=== PATIENT | female | born 1980 | race Caucasian/White ===

== ENCOUNTER 2024-02-01 16:05 | Inpatient (IN) ==
[2024-02-01] MEDS: Albuterol/Ipratropium NEB.SOL (2.5/0.5 MG) 3 ML NEB.SOLN INH ONE (17:06)
[2024-02-01 17:30] LABS: ALT 11 U/L (7-52); AST 12 U/L (13-39); Albumin 3.5 g/dL (3.2-5.2); Alkaline Phosphatase 76 U/L (35-149); Anion Gap 9 mmol/L (2-16); Blood Urea Nitrogen 20 mg/dL (6-24); C Reactive Protein 25.13 mg/L (<8.01); CO2 Carbon Dioxide 27 mmol/L (22-32); Calcium 9.2 mg/dL (8.6-10.3); Chloride 103 mmol/L (101-111); Creatinine, Serum 0.75 mg/dL (0.51-0.95); Globulin 3.4 g/dL (2-4); Glucose 115 mg/dL (70-100); Potassium 4.1 mmol/L (3.5-5.0); Sodium 139 mmol/L (135-145); Total Bilirubin 0.2 mg/dL (0.2-1.0); Total Protein 6.9 g/dL (6.4-8.9); eGFR CKD-EPI 100.6 (>60)
[2024-02-01 17:32] LABS: Hematocrit 37.5 % (35-45); Hemoglobin 12.5 g/dL (11.5-14.3); Mean Corpuscular Hemoglobin 32.7 pg (27-33); Mean Corpuscular Hgb Conc 33.3 g/dL (31-36); Mean Corpuscular Volume 98.2 fL (80-97); Red Blood Count 3.82 10^6/uL (3.63-4.92); White Blood Count 7.7 10^3/uL (3.8-11.8)
[2024-02-01 18:02] LABS: ABS Eosinophils 0.4 10^3/uL (0.0-0.5); ABS Lymphocytes 3.3 10^3/uL (1.0-4.8); ABS Monocytes 0.7 10^3/uL (0.0-0.9); ABS Nucleated RBC 0.01 10^3/ul; Eosinophil % 4.9 %; Lymphocyte % 39.7 %; Nucleated Red Blood Cells % 0.1 %/100WBC (0.0-0.8)
[2024-02-01 18:03] LABS: Mean Platelet Volume 9.1 fL (7.5-11.2); Platelet Count 248 10^3/uL (150-450)
[2024-02-01] MEDS: Enoxaparin 40 MG/0.4 ML SYR SUBCUT SCH (19:56)
[2024-02-01] MEDS: Furosemide 40 mg/4 ml IV VIAL IV ONE (19:57)
[2024-02-01 20:13] LABS: HCG Pregnancy < 0.60 mIU/mL
[2024-02-02 06:19] LABS: ABS Eosinophils 0.3 10^3/uL (0.0-0.5); ABS Lymphocytes 1.7 10^3/uL (1.0-4.8); ABS Monocytes 0.5 10^3/uL (0.0-0.9); ABS Neutrophils 4.1 10^3/uL (1.5-7.6); Eosinophil % 4.3 %; Hematocrit 38.5 % (35-45); Hemoglobin 12.7 g/dL (11.5-14.3); Lymphocyte % 25.2 %; Mean Corpuscular Hemoglobin 32.6 pg (27-33); Mean Corpuscular Hgb Conc 33.1 g/dL (31-36); Mean Corpuscular Volume 98.7 fL (80-97); Mean Platelet Volume 9.2 fL (7.5-11.2); Platelet Count 235 10^3/uL (150-450); White Blood Count 6.7 10^3/uL (3.8-11.8)
[2024-02-02 06:40] LABS: Calcium 9.3 mg/dL (8.6-10.3); Creatinine, Serum 0.63 mg/dL (0.51-0.95); HDL Cholesterol 46.5 mg/dL; Phosphorus 4.1 mg/dL (2.5-5.0); Potassium 4.5 mmol/L (3.5-5.0); eGFR CKD-EPI 112.1 (>60)
[2024-02-02 06:54] LABS: TSH Ultra Thyroid Stim Horm 2.33 mcIU/mL (0.34-5.60)
[2024-02-02 07:00] LABS: Ferritin 39.3 ng/mL (11-307)
[2024-02-02] MEDS ORDERED: Sulfur Hexaflouride MICROSPHR 25 MG VIAL ONE (09:42)
[2024-02-02] MEDS: Sulfur Hexaflouride MICROSPHR 25 MG VIAL IV ONE (09:44)
[2024-02-02] MEDS: Furosemide 40 mg/4 ml IV VIAL IV SLOW PU ONE (15:01)
[2024-02-03 07:34] LABS: Calcium 9.4 mg/dL (8.6-10.3); Creatinine, Serum 0.7 mg/dL (0.51-0.95); Potassium 4.4 mmol/L (3.5-5.0); eGFR CKD-EPI 109.3 (>60)
[2024-02-03] MEDS: Furosemide 40 mg/4 ml IV VIAL IV SLOW PU ONE (18:35)
[2024-02-04] MEDS: Furosemide 20 mg/2 ml IV VIAL IV ONE (09:52)
[2024-02-05] MEDS: Eye Irrigation Solution 30 ML BOTTLE BOTH EYES ONE (06:08)
[2024-02-05 11:01] VITALS: BP 105/57
== END 2024-02-05 13:50 | disposition home or self-care (01) | DRG 291 ==
LOC: ED 16:05 → EDHOLD 16:05 → SUATTDRO 17:51 → MED 18:40
PROVIDERS: ADMIT Internal Medicine; ATTEND Student in an Organized Health Care Education/Training Program

== ENCOUNTER 2024-02-20 18:23 | Observation (INO) ==
[2024-02-20 19:45] LABS: ABS Basophils 0.1 10^3/uL (0.0-0.1); ABS Eosinophils 0.4 10^3/uL (0.0-0.5); ABS Lymphocytes 2.5 10^3/uL (1.0-4.8); ABS Monocytes 0.6 10^3/uL (0.0-0.9); ABS Neutrophils 3.1 10^3/uL (1.5-7.6); Eosinophil % 6.4 %; Hemoglobin 12.9 g/dL (11.5-14.3); Lymphocyte % 36.5 %; Mean Corpuscular Hemoglobin 32.2 pg (27-33); Mean Corpuscular Hgb Conc 32.2 g/dL (31-36); Mean Corpuscular Volume 100.1 fL (80-97); Mean Platelet Volume 8.9 fL (7.5-11.2); Nucleated Red Blood Cells % 0.1 %/100WBC (0.0-0.8); Platelet Count 231 10^3/uL (150-450); Red Cell Distribution Width 14.9 % (12-17); White Blood Count 6.8 10^3/uL (3.8-11.8)
[2024-02-20 19:53] LABS: Albumin 3.6 g/dL (3.2-5.2); Albumin/Globulin Ratio 1.1 (1-3); Calcium 8.9 mg/dL (8.6-10.3); Creatinine, Serum 0.82 mg/dL (0.51-0.95); Globulin 3.2 g/dL (2-4); Potassium 3.9 mmol/L (3.5-5.0); Total Bilirubin 0.3 mg/dL (0.2-1.0); Total Protein 6.8 g/dL (6.4-8.9); eGFR CKD-EPI 90.4 (>60)
[2024-02-20 19:55] LABS: INR 1.01 (0.85-1.14)
[2024-02-20 20:31] LABS: High Sensitivity Troponin 1 Hr 7 pg/mL (<15)
[2024-02-21] MEDS: Iodixanol (CONTRAST) 320 MG/ML 100 ML SDV IV ONE (04:13)
[2024-02-21] MEDS: Iohexol 350 (CONTRAST) 500 ML MDV IV ONE (04:16)
[2024-02-21 04:25] LABS: Venous Bicarbonate HCO3 25.1 mmol/L (24-28)
[2024-02-21 04:47] LABS: High Sensitivity Troponin 3 Hr 5 pg/mL (<15)
[2024-02-21] MEDS ORDERED: Albuterol HFA INHALER 8 gm MDI INH PRN (15:00)
[2024-02-21] MEDS: Enoxaparin 40 MG/0.4 ML SYR SUBCUT SCH (15:13)
[2024-02-21] MEDS: Furosemide 20 mg/2 ml IV VIAL IV ONE (15:14)
[2024-02-22 05:58] LABS: Hematocrit 39.3 % (35-45); Hemoglobin 12.9 g/dL (11.5-14.3); Mean Corpuscular Hemoglobin 32.7 pg (27-33); Mean Corpuscular Hgb Conc 32.8 g/dL (31-36); Mean Corpuscular Volume 99.9 fL (80-97); Mean Platelet Volume 8.5 fL (7.5-11.2); Platelet Count 243 10^3/uL (150-450); Red Blood Count 3.94 10^6/uL (3.63-4.92); Red Cell Distribution Width 14.5 % (12-17)
[2024-02-22 07:05] LABS: Anion Gap 8 mmol/L (2-16); Blood Urea Nitrogen 14 mg/dL (6-24); CO2 Carbon Dioxide 26 mmol/L (22-32); Calcium 8.8 mg/dL (8.6-10.3); Chloride 107 mmol/L (101-111); Creatinine, Serum 0.63 mg/dL (0.51-0.95); Glucose 102 mg/dL (70-100); Sodium 141 mmol/L (135-145); eGFR CKD-EPI 112.1 (>60)
[2024-02-22] MEDS: Furosemide 20 mg/2 ml IV VIAL IV SLOW PU ONE (20:10)
[2024-02-23 10:05] VITALS: BP 119/51
[2024-03-11] MEDS ORDERED: AUTO INJECTOR SUBCUT SCH (09:00)
[2024-03-11] MEDS ORDERED: FREMANEZUMAB VFRM 225 MG/1.5 ML SUBCUT SCH (09:00)
== END 2024-02-23 16:35 | disposition home or self-care (01) ==
LOC: EDHOLD 18:23 → ED 18:23 → SUATTDRO 02-21 11:02 → MEDTELE 02-21 11:37
PROVIDERS: ADMIT Student in an Organized Health Care Education/Training Program; ATTEND Internal Medicine